=== PATIENT | female | born 2000 | race Two or more races ===

== ENCOUNTER 2021-02-19 14:00 | Inpatient (IN) | payer OTHER ==
[~2021-02-19] VITALS: Ht 149.9 cm; Wt 75.3 kg
[2021-03-05] MEDS ORDERED: PRENA1 TRUE CO1 EACH PO (12:28)
[2021-03-05] MEDS ORDERED: FOLIC ACID20 MG (12:29)
== END 2021-03-07 11:54 | disposition home or self-care (01) | DRG 807 ==
LOC: LDR 03-03 14:00 → OB/GYN 03-05 20:20
PROVIDERS: ADMIT Obstetrics & Gynecology; ATTEND Obstetrics & Gynecology
PROC: 10E0XZZ Delivery of Products of Conception, External Approach (ICD-10-PCS; principal; 2021-03-05)
PROC: 0W8NXZZ Division of Female Perineum, External Approach (ICD-10-PCS; 2021-03-05)
PROC: 4A1HXFZ Monitoring of Products of Conception, Cardiac Rhythm, External Approach (ICD-10-PCS; 2021-03-05)
DX: O80 Encounter for full-term uncomplicated delivery (principal); Z37.0 Single live birth; Z3A.39 39 weeks gestation of pregnancy